=== PATIENT | female | born 1975 | race Caucasian/White ===

== ENCOUNTER → 2019-03-26 | Outpatient (CLI) | payer OTHER ==
[~2019-03-26] MED LIST: ACET325 PO; ACYC400 PO; ALBU90OI61 INH; Aviane1 EACH PO; BENZ100A PO; BUSP10; BUSP15 PO; Benztropine Mesy1 MG PO; CEPH500 PO; COMBIVENT RESPIM4 GM INH; DIPH50 PO; DULO60 PO; INCRUSE ELLI62.5 MCG IH; LAMICTAL; LAMO100 PO; LAMO50; LAVAP17G PO; METPRE4DP PO; OMEP20ER PO; OMEP40CA12 PO; Omeprazole20 M1; POLY17UD PO; PRAZ2 PO; PROM25 PO; QUET100 PO; QUET25 PO; RXTRAM50 PO; Robaxin500 MG PO; SEROQUEL; SULTRIDS PO; Silvadene20 GM TOP; TRAM50 PO; TRAZ100 PO; TRAZ150T57 PO; TRAZ50 PO; TRAZONE; Ultram50 MG PO
== END | disposition home or self-care (01) ==
LOC: LAB 19:49 → LAB SHORT 19:49
DX: R21 Rash and other nonspecific skin eruption (principal)
CPT/HCPCS: 87070; 87077; 87147; 87186; 87205

== ENCOUNTER 2019-04-26 07:28 | Emergency (ER) | payer OTHER ==
[~2019-04-26] VITALS: Ht 157.5 cm; Wt 63.5 kg
[2019-04-26] MEDS ORDERED: CARB10OTL TOP (08:05)
[2019-04-26] MEDS ORDERED: Nasonex17 GM (08:05)
== END 2019-04-26 08:10 | disposition home or self-care (01) ==
LOC: ER 07:28
DX: H61.21 Impacted cerumen, right ear (principal); R09.81 Nasal congestion; F31.9 Bipolar disorder, unspecified; Z79.899 Other long term (current) drug therapy
CPT/HCPCS: 99282

== ENCOUNTER 2022-12-21 13:44 | Emergency (ER) | payer OTHER ==
[~2022-12-21] VITALS: Ht 157.5 cm; Wt 65.3 kg
[~2022-12-21 13:44] MED LIST changes: +CARB10OTL TOP; +Nasonex17 GM
[2022-12-21 14:28] VITALS: BP 109/68
[2022-12-21 15:46] LABS: BASOPHILS ABSOLUTE AUTO 0.05 K/mm3 (0.00-0.23); BASOPHILS PERCENT AUTO 1 % (0-2); EOSINOPHILS ABSOLUTE AUTO 0.13 K/mm3 (0.00-0.68); EOSINOPHILS PERCENT AUTO 3 % (0-6); Hematocrit 27.8 % (33.0-51.0); Hemoglobin 7.6 g/dL (11.5-16.0); IMMATURE GRAN ABSOLUTE AUTO 0.02 K/mm3 (0.00-0.10); IMMATURE GRAN PERCENT AUTO 0 % (0-1); LYMPHOCYTES ABSOLUTE AUTO 1.53 K/mm3 (0.84-5.20); LYMPHOCYTES PERCENT AUTO 33 % (21-46); MONOCYTES ABSOLUTE AUTO 0.43 K/mm3 (0.16-1.47); MONOCYTES PERCENT AUTO 9 % (4-13); Mean Corpuscular HGB 17.4 pg (26.0-34.0); Mean Corpuscular HGB Conc 27.3 g/dL (31.5-36.5); Mean Corpuscular Volume 64 fL (80-100); Mean Platelet Volume 9.5 fL (9.1-12.4); NEUTROPHILS ABSOLUTE AUTO 2.55 K/mm3 (1.96-9.15); NEUTROPHILS PERCENT AUTO 54 % (41-73); Platelet Count 191 K/mm3 (150-400); RDW Standard Deviation 47.4 fL (35.1-46.3); Red Blood Cell Count 4.36 M/mm3 (3.80-5.20); White Blood Cell Count 4.71 K/mm3 (4.00-11.30)
[2022-12-21 16:10] LABS: Albumin, Blood 3.5 g/dL (3.4-5.0); Bilirubin, Total 0.2 mg/dL (0.1-1.0); Bun/Creatinine Ratio 17.4 (12.0-20.0); Calcium, Blood 8.8 mg/dL (8.5-10.1); Creatinine, Blood 0.63 mg/dL (0.40-1.00); Globulin, Blood 3.4 g/dL (2.2-4.0); Percent Saturation 2.2 % (15.0-50.0); Total Protein, Blood 6.9 g/dL (6.4-8.2)
== END 2022-12-21 18:52 | disposition home or self-care (01) ==
LOC: ER 13:44
PROVIDERS: Physician Assistant
DX: D50.9 Iron deficiency anemia, unspecified (principal); Z88.1 Allergy status to other antibiotic agents; Z79.1 Long term (current) use of non-steroidal anti-inflammatories (NSAID); Z79.51 Long term (current) use of inhaled steroids; Z86.14 Personal history of Methicillin resistant Staphylococcus aureus infection
CPT/HCPCS: 80053; 82728; 83540; 83550; 85025; 96374; 99283-25; J2916

== ENCOUNTER 2023-05-15 09:52 | Day surgery (SDC) | payer OTHER ==
[~2023-05-15] VITALS: Ht 157.5 cm; Wt 59.9 kg
--- NOTE | 2023-05-15 11:07 | NUR ---
05/15/23 1107 Purvi Baer LIDOCAINE 2% WITH EPI 1:100,000 DILUTED 1:1 WITH NORMAL SALINE TO MAKE LIDOCAINE 1% WITH EPI 1:200,000 FOR INJECTION AT THE OPSITE BY DR URBINA. 2ML INJECTED AT THE START OF PROCEDURE.
[2023-05-15 14:02] VITALS: BP 128/94
--- NOTE | 2023-05-15 14:41 | NUR ---
05/15/23 1441 Fredy Livingston IV REMOVED INTACT. SITE WNL. PT REPORTED 4/10 PAIN UPON D/C. SHE DESCRIBED PAIN TOLERABLE AND EXPRESSED READINESS TO RETURN HOME.
== END 2023-05-15 14:36 | disposition home or self-care (01) ==
LOC: ORSCSDS 09:52
PROVIDERS: Otolaryngology
PROC: 0GTK0ZZ Resection of Thyroid Gland, Open Approach (ICD-10-PCS; principal; 2023-05-15 11:00)
DX: C73 Malignant neoplasm of thyroid gland (principal); E05.90 Thyrotoxicosis, unspecified without thyrotoxic crisis or storm; I10 Essential (primary) hypertension; J45.909 Unspecified asthma, uncomplicated
CPT/HCPCS: 82947; 88307; A9270; J1100; J1885; J2250; J2405; J2704; J2765; J3010; J7120